=== PATIENT | female | born 1995 | race Caucasian/White ===

== ENCOUNTER 2024-09-14 10:18 | Inpatient (IN) | payer OTHER ==
[2024-09-14] MEDS: DEXTROSE 5%-LACTATED RINGERS 1,000 ML IV SCH (11:15)
[2024-09-14 11:50] LABS: ABSOLUTE IMMATURE GRANULOCYTES 0.04 x10^3/uL (0.0-0.031); BASOPHILS # 0.03 x10^3/uL (0.01-0.08); EOSINOPHIL % 0.1 % (0.7-5.8); EOSINOPHILS # 0.01 x10^3/uL (0.04-0.36); MCHC 33.2 g/dl (32.2-35.5); MEAN CELL VOLUME 91.8 fl (79.4-94.8); MEAN PLT VOLUME 11.0 fl (9.4-12.3); MONOCYTE # 0.61 x10^3/uL (0.24-0.86); MONOCYTE % 7.6 % (4.7-12.5); RDW 13.0 % (12.1-16.5)
[2024-09-14 12:01] VITALS: BMI 33.5
[2024-09-14 12:06] LABS: INR 0.95 (0.83-1.09); PROTHROMBIN TIME (PATIENT) 10.5 SEC (9.7-13.0)
[2024-09-14 12:09] LABS: ACTIVATED PTT 29.3 SECONDS (25.2-36.5)
[2024-09-14 12:26] LABS: CO2 24.0 mmol/L (21-32); GLUCOSE,RANDOM 74.0 mg/dL (74-106)
[2024-09-14 12:28] LABS: CREATININE 0.6 mg/dL (0.55-1.3)
[2024-09-14] MEDS: DINOPROSTONE 10 MG VAGINAL SUPPOSITORY VG ONE (12:55)
[2024-09-14 13:09] LABS: HIV INTERPRETATION NEGATIVE (NEGATIVE)
[2024-09-15] MEDS: BUTORPHANOL TARTRATE 2 MG/ML VIAL IVPB ONE (00:10)
[2024-09-15] MEDS: PROMETHAZINE HCL 25 MG/1 ML VIAL IVPB ONE (00:10)
[2024-09-15] MEDS: OXYTOCIN 30 UNITS in 0.9% NS 30 UNIT/500 ML INFUS.BAG IVPB SCH (00:15)
[2024-09-15] MEDS ORDERED: FENTANYL/BUPIVACAINE/NS/PF - PCEA - 50 ML DISP.SYRIN EP ONE (06:25)
[2024-09-15] MEDS: ELECTROLYTE-148 SOLN 1,000 ML IV SCH (06:30)
[2024-09-15] MEDS ORDERED: BUPIVACAINE HCL/PF 0.25% (2.5MG/ML) 10 ML VIAL ONE (06:40)
[2024-09-15] MEDS ORDERED: FENTANYL CITRATE/PF 50 MCG/ML VIAL ONE (06:40)
[2024-09-15] MEDS: FENTANYL/BUPIVACAINE/NS/PF - PCEA - 50 ML DISP.SYRIN EP SCH (06:55)
[2024-09-15] MEDS ORDERED: NALOXONE HCL 0.4 MG/ML VIAL IVPUSH PRN (06:58)
[2024-09-15] MEDS ORDERED: OXYTOCIN 30 UNITS in 0.9% NS 30 UNIT/500 ML INFUS.BAG IVPB ONE (09:28)
[2024-09-15] MEDS ORDERED: LIDOCAINE HCL 1% PRESERVATIVE FREE - 30ML VIAL ONE (09:28)
[2024-09-15] MEDS: OXYTOCIN 20 UNITS in 0.9% NS 20 UNIT/1,000 ML INFUS.BAG IV SCH (10:10)
[2024-09-15] MEDS ORDERED: METHYLERGONOVINE MALEATE 0.2 MG/1 ML AMP IM PRN (10:43)
[2024-09-15] MEDS ORDERED: BISACODYL 10 MG SUPP.RECT RC PRN (10:43)
[2024-09-15] MEDS ORDERED: BENZOCAINE 28 GM HEMORRHOIDAL OINTMENT TP PRN (10:43)
[2024-09-15] MEDS ORDERED: ACETAMINOPHEN 325 MG TABLET (FP) PO PRN (10:43)
[2024-09-15] MEDS: WITCH HAZEL 50% (TUCKS) 40 PAD/JAR PAD TP PRN (15:43)
[2024-09-15] MEDS: BENZOCAINE 20% 57 GM BOTTLE TP PRN (15:44)
[2024-09-16] MEDS: IBUPROFEN 600 MG TABLET (FP) PO PRN (01:04)
[2024-09-16 07:40] LABS: MEAN CELL VOLUME 93.3 fl (79.4-94.8); MEAN PLT VOLUME 11.0 fl (9.4-12.3)
[2024-09-16 07:42] LABS: ABSOLUTE IMMATURE GRANULOCYTES 0.10 x10^3/uL (0.0-0.031); BASOPHILS # 0.02 x10^3/uL (0.01-0.08); EOSINOPHIL % 0.1 % (0.7-5.8); EOSINOPHILS # 0.01 x10^3/uL (0.04-0.36); IMMATURE PLATELET FRACTION # 5.00 x10^3/uL; MCHC 32.5 g/dl (32.2-35.5); MONOCYTE # 0.68 x10^3/uL (0.24-0.86); MONOCYTE % 5.1 % (4.7-12.5); RDW 13.2 % (12.1-16.5)
[2024-09-16] MEDS: PRENATAL VITAMINS W/ FOLIC ACID TABLET (FP) PO SCH (09:47)
[2024-09-16] MEDS: FERROUS SO4 325 MG TABLET (FP) PO SCH (09:47)
[2024-09-16] MEDS: DIPHTH,PERTUSS(ACELL),TET 0.5 ML DISP.SYRIN IM ONE (09:48)
[2024-09-16] MEDS ORDERED: SENNOSIDES/DOCUSATE COMBO (SENNA PLUS) TABLET (UD) PO PRN (22:00)
[2024-09-17 09:32] VITALS: TEMP 98.6
[2024-09-17 12:25] VITALS: BP 124/85; PULSE 80; RESP 18
== END 2024-09-17 13:00 | disposition home or self-care (01) | DRG 807 ==
LOC: JLDR 10:18 → J3W 09-15 12:46
PROVIDERS: ADMIT Obstetrics & Gynecology; ATTEND Obstetrics & Gynecology
PROC: 0HQ9XZZ Repair Perineum Skin, External Approach (ICD-10-PCS; principal; 2024-09-15)
PROC: 10E0XZZ Delivery of Products of Conception, External Approach (ICD-10-PCS; 2024-09-15)
DX: O14.04 Mild to moderate pre-eclampsia, complicating childbirth (principal); Z37.0 Single live birth; O70.0 First degree perineal laceration during delivery; Z3A.40 40 weeks gestation of pregnancy
CPT/HCPCS: 36415; 59409; 80048; 85025; 85610; 85730; 86780; 86850; 86870; 86880; 86900; 86901; 86902; 87389; 90715